=== PATIENT | male | born 1990 | race Caucasian/White ===

== ENCOUNTER 2017-12-11 05:53 | Emergency (ER) | payer MEDICAID, OTHER ==
[~2017-12-11] VITALS: Ht 185.4 cm; Wt 120.0 kg
[~2017-12-11 05:53] MED LIST: CLIN300C85 PO; NO HOME MEDS
[2017-12-11] MEDS ORDERED: normal saline 1000ML IV soln IVB ONE (06:10)
[2017-12-11 06:29] LABS: BASOPHILS # (AUTO) 0.1 X10'3 (0-0.2); BASOPHILS % (AUTO) 0.5 % (0-1); EOSINOPHILS # (AUTO) 0.3 X10'3 (0-0.9); EOSINOPHILS % (AUTO) 1.6 % (0-6); HEMATOCRIT 48.6 % (42.0-52.0); HEMOGLOBIN 16.7 g/dl (14.0-17.9); LYMPHOCYTES # (AUTO) 1.4 X10'3 (1.1-4.8); LYMPHOCYTES % (AUTO) 8.4 % (21-51); MEAN CORPUSCULAR HEMOGLOBIN 30.1 PG (27.0-31.0); MEAN CORPUSCULAR HGB CONC 34.4 % (33.0-36.5); MEAN CORPUSCULAR VOLUME 87.4 FL (78-98); MEAN PLATELET VOLUME 9.9 FL (7.4-10.4); MONOCYTES # (AUTO) 1.1 X10'3 (0-0.9); MONOCYTES % (AUTO) 6.7 % (2-12); NEUTROPHILS % (AUTO) 82.8 % (42-75); PLATELET COUNT 276 X10'3 (140-440); RED BLOOD COUNT 5.55 X10'6 (4.70-6.10); RED CELL DISTRIBUTION WIDTH 12.6 % (11.5-14.5); WHITE BLOOD COUNT 16.9 X10'3 (4.5-11.0)
[2017-12-11] MEDS ORDERED: MIDAZolam 5mg/ml 2ml vial IV ONE (06:35)
[2017-12-11 06:45] LABS: ALANINE AMINOTRANSFERASE 58 U/L (12-78); ALBUMIN 4.6 G/DL (3.4-5.0); ALBUMIN/GLOBULIN RATIO 1.2 (1.1-1.5); ALKALINE PHOSPHATASE 93 IU/L (46-116); ANION GAP 16 (8-16); ASPARTATE AMINO TRANSFERASE 29 U/L (10-37); BILIRUBIN,TOTAL 0.8 MG/DL (0.1-1.0); BLOOD UREA NITROGEN 18 MG/DL (7-18); BUN/CREATININE RATIO 8.7 (5.4-32.0); CALCIUM 9.6 MG/DL (8.5-10.1); CHLORIDE 106 MMOL/L (99-107); CREATININE 2.08 MG/DL (0.60-1.10); GLUCOSE 103 MG/DL (70-104); POTASSIUM 3.7 MMOL/L (3.5-5.1); SODIUM 146 MMOL/L (135-145); TOTAL CARBON DIOXIDE 23.8 MMOL/L (24-32); TOTAL PROTEIN 8.4 G/DL (6.4-8.2); eGFR 39 ML/MIN
[2017-12-11 06:56] LABS: CKMB RELATIVE INDEX 0.5 RATIO (0-2.5); CREATINE KINASE 389 U/L (39-308); ETHANOL < 0.010 GM/DL (0.0-0.010)
[2017-12-11 07:19] LABS: URINE AMPHETAMINE SCREEN POSITIVE (Neg); URINE BARBITUATE SCREEN NEGATIVE (Neg); URINE BENZODIAZEPINES SCREEN NEGATIVE (Neg); URINE CANNABINOID SCREEN POSITIVE (Neg); URINE COCAINE SCREEN NEGATIVE (Neg); URINE METHADONE SCREEN NEGATIVE (Neg); URINE OPIATE SCREEN NEGATIVE (Neg); URINE PHENCYCLIDINE SCREEN NEGATIVE (Neg)
[2017-12-11] MEDS ORDERED: normal saline 1000ML IV soln IV ONE (07:20)
[2017-12-11 07:36] LABS: CLARITY,URINE SLIGHTLY CLOUDY (Clear); COLOR,URINE YELLOW (Yellow); GLUCOSE, URINE NEGATIVE (Neg); KETONES,URINE NEGATIVE (Neg); LEUKOCYTE ESTERASE ,URINE NEGATIVE (Neg); NITRITES, URINE NEGATIVE (Neg); OCCULT BLOOD,URINE NEGATIVE (Neg); PROTEIN,URINE 100 mg/dl (Neg); UROBILINOGEN,URINE 0.2 E.U/dL (0.2-1.0)
[2017-12-11 07:37] LABS: UA COLLECTION TYPE STRAIGHT CATH
[2017-12-11 07:45] LABS: HYALINE CASTS 0-3 /LPF (NEGATIVE); MUCUS STRANDS MODERATE /LPF (Neg)
[2017-12-11 07:46] LABS: SPERM MODERATE /HPF (NEGATIVE)
[2017-12-11 07:47] LABS: BACTERIA,URINE 1+ /HPF (Neg)
[2017-12-11 07:48] LABS: RBC,URINE NONE SEEN /HPF (0-2); SQUAMOUS EPITHELIAL CELL,UR NONE SEEN /LPF (FEW)
[2017-12-11 11:37] VITALS: BP 145/87
== END 2017-12-11 11:38 ==
LOC: ER 05:54
DX: F12.10 Cannabis abuse, uncomplicated (principal); F15.10 Other stimulant abuse, uncomplicated; Z86.14 Personal history of Methicillin resistant Staphylococcus aureus infection; Z90.89 Acquired absence of other organs; Z88.5 Allergy status to narcotic agent; Z88.6 Allergy status to analgesic agent
CPT/HCPCS: 36415; 80053; 80305; 80320; 81001; 82550; 82553; 83605; 84145; 84443; 84484; 85025; 87040; 87088; 93005; 96374; 99285; C1758; J2250; J7030; A4353

== ENCOUNTER 2020-06-27 13:38 | Emergency (ER) | payer MEDICAID ==
[~2020-06-27] VITALS: Ht 185.4 cm; Wt 136.4 kg
[2020-06-27 13:40] VITALS: BP 193/114
[2020-06-27] MEDS ORDERED: LIDOcaine 1% W/epiNEPHrine 1:200,000 10ml vial IJ ONE (14:40)
[2020-06-27] MEDS ORDERED: LIDOcaine 1% 30ml preserv. free vial IJ ONE (14:45)
== END 2020-06-27 17:11 | disposition home or self-care (01) ==
LOC: ER 13:38
DX: S61.411A Laceration without foreign body of right hand, initial encounter (principal); F15.90 Other stimulant use, unspecified, uncomplicated; Z56.0 Unemployment, unspecified; Z72.89 Other problems related to lifestyle; Z86.14 Personal history of Methicillin resistant Staphylococcus aureus infection; W25.XXXA Contact with sharp glass, initial encounter; Y93.89 Activity, other specified; Y92.89 Other specified places as the place of occurrence of the external cause; Y99.8 Other external cause status
CPT/HCPCS: 12002; 99284

== ENCOUNTER 2020-07-13 08:07 | Emergency (ER) | payer MEDICAID ==
[~2020-07-13] VITALS: Ht 185.4 cm; Wt 133.4 kg
[2020-07-13 08:13] VITALS: BP 166/98
[2020-07-13] MEDS ORDERED: CEPH250T PO (09:22)
== END 2020-07-13 09:37 | disposition home or self-care (01) ==
LOC: ER 08:08
DX: M79.644 Pain in right finger(s) (principal); S61.411D Laceration without foreign body of right hand, subsequent encounter; X58.XXXD Exposure to other specified factors, subsequent encounter; Z79.2 Long term (current) use of antibiotics; F15.90 Other stimulant use, unspecified, uncomplicated; Z56.0 Unemployment, unspecified; Z72.89 Other problems related to lifestyle; Z90.89 Acquired absence of other organs; Z86.14 Personal history of Methicillin resistant Staphylococcus aureus infection; Z48.02 Encounter for removal of sutures
CPT/HCPCS: 99283

== ENCOUNTER 2021-08-07 14:38 | Emergency (ER) | payer MEDICAID ==
[~2021-08-07] VITALS: Ht 185.4 cm; Wt 127.2 kg
[2021-08-07 15:09] VITALS: BP 141/85
[2021-08-07] MEDS ORDERED: acetaminophen 325mg tablet PO ONE (16:20)
[2021-08-07] MEDS ORDERED: SULF1TAB49 PO (16:27)
== END 2021-08-07 17:04 | disposition home or self-care (01) ==
LOC: ER 14:38
DX: L02.416 Cutaneous abscess of left lower limb (principal); F15.90 Other stimulant use, unspecified, uncomplicated; Z72.89 Other problems related to lifestyle; Z56.0 Unemployment, unspecified; Z79.2 Long term (current) use of antibiotics
CPT/HCPCS: 99282; 99283

== ENCOUNTER 2021-11-07 22:51 | Emergency (ER) | payer MEDICAID ==
[~2021-11-07] VITALS: Ht 188 cm; Wt 125.1 kg
[2021-11-07 23:05] VITALS: BP 159/99
== END 2021-11-08 02:40 | disposition left against medical advice (07) ==
LOC: ER 22:51
DX: M79.602 Pain in left arm (principal); Z53.21 Procedure and treatment not carried out due to patient leaving prior to being seen by health care provider

== ENCOUNTER 2021-11-08 23:55 | Emergency (ER) | payer MEDICAID | END 2021-11-09 00:36 | disposition left against medical advice (07) | LOC: ER 23:57 | DX: L02.91 Cutaneous abscess, unspecified (principal); Z53.21 Procedure and treatment not carried out due to patient leaving prior to being seen by health care provider ==

== ENCOUNTER 2024-07-28 15:59 | Emergency (ER) | payer MEDICAID ==
[~2024-07-28] VITALS: Ht 188 cm; Wt 154.6 kg
[2024-07-28 16:06] VITALS: BP 150/92; PULSE 109; RESP 18; TEMP 98.8; O2SAT 97
[2024-07-28] MEDS ORDERED: CLIN300C71 PO (17:09)
== END 2024-07-28 17:37 | disposition home or self-care (01) ==
LOC: ER 16:00
DX: L05.91 Pilonidal cyst without abscess (principal); L02.211 Cutaneous abscess of abdominal wall; F15.90 Other stimulant use, unspecified, uncomplicated; Z72.89 Other problems related to lifestyle; Z56.0 Unemployment, unspecified; Z88.2 Allergy status to sulfonamides
CPT/HCPCS: 99283; A6449